=== PATIENT | female | born 1990 | race Caucasian/White ===

== ENCOUNTER 2019-03-15 00:03 | Emergency (ER) | payer OTHER ==
[~2019-03-15] VITALS: Ht 157.5 cm; Wt 59.9 kg
[~2019-03-15 00:03] MED LIST: LUTERA
[2019-03-15 01:07] VITALS: Ht 157.5 cm; Wt 59.9 kg
[2019-03-15 07:09] VITALS: BP 122/77
== END 2019-03-15 07:09 | disposition home or self-care (01) ==
LOC: ED 00:03
DX: T78.40XA Allergy, unspecified, initial encounter (principal); X58.XXXA Exposure to other specified factors, initial encounter
CPT/HCPCS: J1200; J7512